=== PATIENT | female | born 1990 | race Hispanic/Latino ===

== ENCOUNTER → 2018-04-22 08:45 | Outpatient (CLI) | payer OTHER, SELFPAY ==
--- NOTE | 2018-04-22 08:47 | DI.MRI.S_ITS ---
PROCEDURE: MR HEAD/BRAIN WO/W CON INDICATIONS: Slurred speech, visual problems. Clinical concern for multiple sclerosis. TECHNIQUE: Noncontrast sagittal and axial FLAIR, axial and coronal T2 fast spin echo, axial VIBE, axial gradient echo, axial diffusion and ADC through the brain. After the administration of contrast, axial and coronal VIBE with fat saturation through the brain. COMPARISON: [facility], MR, C-SPINE WITHOUT CONTRAST, 01/14/2018, 12:47. FINDINGS: Image quality: Excellent. CSF spaces: Ventricles are normal in size and shape. Basal cisterns are patent. No extra-axial fluid collections. Brain: No intracranial bleeds or mass effects. Deluna-white matter interface appears intact. No suspicious white matter lesions. No abnormal intracranial enhancement. Diffusion weighted images show no acute ischemic insults. Brainstem appears normal. Normal intravascular flow voids are present. Skull and face: Calvarial marrow signal is normal. Orbits appear normal. Sinuses: Sinuses and mastoids are clear. IMPRESSION: 1. No evidence of multiple sclerosis. 2. No acute process. No recent infarct. Dictated by: Cecil Carpio M.D. on 04/22/2018 at 10:32 Approved by: Cecil Carpio M.D. on 04/22/2018 at 10:34
== END ==
PROVIDERS: PCP Family Medicine; Visit Provider Family Medicine
DX: R47.81 Slurred speech (principal); H53.9 Unspecified visual disturbance
CPT/HCPCS: 70553; A9579

== ENCOUNTER → 2018-04-28 12:38 | Outpatient (CLI) | payer OTHER, SELFPAY ==
[2018-04-28 14:08] LABS: HCG Quantitative /Beta subunit < 2.39 mIU/mL
== END ==
PROVIDERS: PCP Family Medicine; Visit Provider Physician Assistant
DX: R11.10 Vomiting, unspecified (principal)
CPT/HCPCS: 36415; 84702

== ENCOUNTER → 2018-07-07 17:55 | Outpatient (CLI) | payer OTHER, SELFPAY ==
[2018-07-07 18:51] LABS: Add Manual Diff / Slide Review NO; Basophils Percent Auto 0.3 % (0-2); Eosinophils Percent Auto 0.7 % (2-4); Hematocrit 37.4 % (36-46); Hemoglobin 12.7 g/dL (12.0-16.0); Lymphocytes Percent Auto 29.4 % (25-40); Mean Corpuscular HGB Conc 33.9 % (30-36); Mean Corpuscular Volume 91.3 fL (80-100); Monocytes Percent Auto 6.6 % (3-14); Neutrophils Absolute Auto 6800 /uL (3000-5900); Platelet Count 325 X10^3/uL (150-400); Red Cell Distribution Width 12.9 % (11.6-14.8); White Blood Cell Count 10.8 X10^3/uL (4.5-11.0)
[2018-07-07 19:17] LABS: Alanine Aminotransferase 34 IU/L (9-52); Albumin Globulin Ratio 1.1 (1.0-2.8); Alkaline Phosphatase 75 U/L (38-126); Aspartate Aminotransferase 29 IU/L (14-36); BUN Creatinine Ratio 15.6 (6-22); Bilirubin Total 0.5 mg/dL (0.2-1.3); Blood Urea Nitrogen 14 mg/dL (7-17); C-Reactive Protein Quant 2.1 mg/dL (<1.0); Calcium 9.1 mg/dL (8.4-10.2); Carbon Dioxide 29 mmol/L (22-32); Chloride 104 mmol/L (98-107); Creatine Kinase 288 U/L (30-135); Estimated Glomerular Filt Rate > 60.0 mL/min (>60); Globulin 3.6 g/dL (1.7-4.1); Glucose 80 mg/dL (70-100); HEMOLYSIS < 15 (0-50); Potassium 3.9 mmol/L (3.4-5.1); Sodium 143 mmol/L (137-145); Total Protein 7.6 g/dL (6.3-8.2)
[2018-07-07 19:18] LABS: Rheumatoid Factor < 8.6 IU/mL (<12.0)
[2018-07-07 19:26] LABS: Erythrocyte Sedimentation Rate 34 MM/HR (0-20)
[2018-07-07 19:45] LABS: Thyroid Stimulating Hormone 4.01 uIU/mL (0.47-4.68)
[2018-07-11 20:29] LABS: ANA Pattern Nucleolar; ANA Screen, IFA Positive (Negative)
== END ==
PROVIDERS: PCP Family Medicine; Visit Provider Physical Medicine & Rehabilitation
DX: M25.511 Pain in right shoulder (principal); M54.12 Radiculopathy, cervical region; R53.83 Other fatigue
CPT/HCPCS: 36415; 80053; 82550; 84443; 85025; 85651; 86038; 86140; 86430

== ENCOUNTER → 2018-07-31 06:32 | Outpatient (CLI) | payer OTHER, SELFPAY ==
--- NOTE | 2018-07-31 | DI.MRI.S_ITS ---
PROCEDURE: MR SHOULDER RT WO CON INDICATIONS: RIGHT SHOULDER PAIN TECHNIQUE: Noncontrast oblique coronal T2 fast spin echo with fat saturation, oblique sagittal T1 spin echo and T2 fast spin echo with fat saturation, axial T1 spin echo and T2 fast spin echo with fat saturation through the shoulder. COMPARISON: None. FINDINGS: Image quality: Excellent. Rotator cuff: The supraspinatus, infraspinatus, and subscapularis tendons appear intact throughout but there is inferior tilt of the lateral acromion narrowing the interspace through which the supraspinatus normally crosses. There is a small degree of edema within the lateral supraspinatus tendon but a partial or full thickness tear is not found. Sagittal images demonstrate no muscle atrophy. Bones and bursae: No bone marrow contusions or fractures. No acromioclavicular joint degeneration. The acromion demonstrates conventional anatomy, without an os acromiale. No pathologic subacromial-subdeltoid or subcoracoid bursal fluid is present. Capsule and soft tissues: In the absence of intra-articular contrast, the labrum and glenohumeral ligaments appear intact. The long head of the biceps tendon demonstrates normal location and morphology. The rotator interval appears normal, without fibrosis. The coracohumeral ligament is normal in thickness. IMPRESSION: Mild chronic impingement syndrome likely is present given the inferior tilt of the lateral acromion narrowing the interspace through which the supraspinatus tendon courses, with no evidence of partial or full thickness rotator cuff tear. There is mild tendinosis involving the supraspinatus tendon laterally as a result. Dictated by: Richard Joe M.D. on 07/31/2018 at 13:56 Approved by: Richard Joe M.D. on 07/31/2018 at 13:58
== END ==
PROVIDERS: PCP Family Medicine; Visit Provider Psychiatry & Neurology Neurology
DX: M25.511 Pain in right shoulder (principal); M75.41 Impingement syndrome of right shoulder
CPT/HCPCS: 73221

== ENCOUNTER 2018-12-01 00:05 | Emergency (ER) | payer OTHER, SELFPAY ==
[2018-12-01 00:27] VITALS: BP 123/70; PULSE 111; RESP 18; TEMP 37.1; O2SAT 100; BMI 43.4
--- NOTE | 2018-12-01 01:18 | ED.SKABFB ---
HPI - Skin/Abscess/Foreign Bdy General Chief complaint: Skin/Abscess/Foreign Body Stated complaint: Small pea size ball inside belly button, painful Time Seen by Provider: 12/01/18 00:47 Source: patient Mode of arrival: ambulatory Limitations: no limitations History of Present Illness HPI narrative: patient is a 28-year-old female who presents with umbilical pain. She feels like something is inside her umbilicus. She has a noticed some discomfort ongoing for last 2 weeks but now has an obvious area of swelling. No fever chills or redness. She has had some pain at her old piercing site ongoing for a year where she feels like the skin is sensitive. She knows unable to sleep due to pain. Related Data Home Medications Medication Instructions Recorded Confirmed kmradrj-bcyfuboniveem-hlmexqun 1 tab PO PRN #0 10/27/17 [Excedrin Migraine] Previous Rx's Medication Instructions Recorded clindamycin 1 % lotion 1 applictn TOP BID #60 ml 06/17/18 lidocaine 5 % topical ointment 1 applictn TOP BID #50 gram 06/17/18 etonogestrel-ethinyl estradiol 1 vaginalrin VAGINAL QMONTH #3 each 09/07/18 0.12 mg -0.015 mg/24 hr vaginal ring ciprofloxacin 500 mg tablet 500 mg PO BID #6 tab 10/12/18 epinephrine 0.3 mg/0.3 mL 0.3 mg IM ONCE #1 each 10/12/18 injection, auto-injector Allergies Allergy/AdvReac Type Severity Reaction Status Date / Time No Known Allergies Allergy Uncoded 06/17/18 08:50 Review of Systems Review of Systems GENERAL: Denies chills,fever HEENT: Denies throat pain RESPIRATORY: Denies dyspnea, cough, wheezing CARDIOVASCULAR: Denies chest pain, palpitations GASTROINTESTINAL: Denies nausea, vomiting MUSCULOSKELETAL: Denies extremity pain, injury SKIN: See HPI NEUROLOGIC: Denies weakness, dizziness, headache, numbness 8 point review of systems is negative except for those stated above and HPI PFSH Social History marital status: details: is in the [employer] household members: spouse education level: college 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) Smoking Status: Never smoker alcohol intake: never substance use type: does not use Exam Initial Vital Signs Initial Vital Signs: Vital Signs Temperature 98.7 F 12/01/18 00:27 Pulse Rate 111 H 12/01/18 00:27 Respiratory Rate 18 12/01/18 00:27 Blood Pressure 123/70 12/01/18 00:27 Pulse Oximetry 100 12/01/18 00:27 GENERAL: Well-appearing, well-nourished and in no acute distress. CARDIOVASCULAR: peripheral pulses in tact, cap refill <2 sec RESPIRATORY: No respiratory distress, speaks in full sentences without difficulty [ABDOMEN: Soft, nontender, no guarding or rebound] EXTREMITIES: Normal range of motion, no clubbing or edema. Neurovascularly intact NEUROLOGICAL: Cranial nerves II through XII grossly intact. Normal gait and speech. SKIN: umbilicus at 11:00 a.m. position there is some mild swelling 0.25cm x 0.5 cm no erythema no induration extremely tender to touch. site of old piercing is noted no abscess no induration around there there is some scar tissue felt just subcutaneously. Procedures Abscess I/D Site: abdomen (Umbilical) Local Anesthetic: lidocaine 1% Amount of anesthesia used (mL): 8 Technique: needle aspiration (18 gauge) and incised with #11 blade Amount of fluid expressed (mL): 0.25 Irrigation: No Packing used?: none Course Vital Signs - 8 hr 12/01/18 00:27 12/01/18 01:36 Temperature 98.7 F Pulse Rate 111 H 98 H Respiratory Rate 18 16 Blood Pressure 123/70 120/70 Pulse Oximetry 100 98 MDM - Skin/Abscess/Foreign Bdy MDM Narrative Medical decision making narrative: Patient had a small amount of gross dark pus. She has no induration or significant erythema. The time of based on patient's size of abscess and signs no indication for oral antibiotics at this time. Recommended topical antibiotic ointment and warm compresses. Discharge Plan Departure Patient Disposition: Home Clinical Impression: Abscess of skin or subcutaneous tissue Discharge Date/Time: 12/01/18 01:37 Interventions: ED Discharge Assessment Last Done: 12/01/18 01:36 Instructions: DI for Incision and Drainage of a Skin Abscess, DI for Skin Abscess Activity Restrictions/Additional Instructions: *You have been diagnosed with skin abscess *What to do: keep area clean and dry, use warm compresses, may apply Neosporin or antibacterial ointment to it twice daily *Continue to take medications as directed *Follow up with your primary care provider in 2-3 days *Return to ER if you should have increased redness, pus, any new, worsening or concerning symptoms Prescriptions: No Action glcyspr-[id number]-ygqfgesx [Excedrin Migraine] 1 EACH tablet 1 tab PO PRN Qty: 0 RF: 0 etonogestrel-ethinyl estradiol [NuvaRing] 0.12-0.015 mg/24 hr ring 1 vaginalrin Vaginal QMONTH Qty: 3 RF: 3 clindamycin phosphate 1 % lotion 1 applictn TOP BID Qty: 60 RF: 0 lidocaine 5 % ointment 1 applictn TOP BID Qty: 50 RF: 0 ciprofloxacin HCl [Cipro] 500 mg tablet 500 mg PO BID Qty: 6 RF: 0 epinephrine [EpiPen] 0.3 mg/0.3 mL auto-injector 0.3 mg IM ONCE Qty: 1 RF: 0 Referrals: Ericka Vazquez DO [Primary Care Provider] -
--- NOTE | 2018-12-01 01:22 | ED_ITS ---
HPI - Skin/Abscess/Foreign Bdy General Chief complaint: Skin/Abscess/Foreign Body Stated complaint: Small pea size ball inside belly button, painful Time Seen by Provider: 12/01/18 00:47 Source: patient Mode of arrival: ambulatory Limitations: no limitations History of Present Illness HPI narrative: patient is a 28-year-old female who presents with umbilical pain. She feels like something is inside her umbilicus. She has a noticed some discomfort ongoing for last 2 weeks but now has an obvious area of swelling. No fever chills or redness. She has had some pain at her old piercing site ongoing for a year where she feels like the skin is sensitive. She knows unable to sleep due to pain. Related Data Home Medications Medication Instructions Recorded Confirmed reqbgyh-xachhdhrrtxwm-rolopffj 1 tab PO PRN #0 10/27/17 [Excedrin Migraine] Previous Rx's Medication Instructions Recorded clindamycin 1 % lotion 1 applictn TOP BID #60 ml 06/17/18 lidocaine 5 % topical ointment 1 applictn TOP BID #50 gram 06/17/18 etonogestrel-ethinyl estradiol 1 vaginalrin VAGINAL QMONTH #3 each 09/07/18 0.12 mg -0.015 mg/24 hr vaginal ring ciprofloxacin 500 mg tablet 500 mg PO BID #6 tab 10/12/18 epinephrine 0.3 mg/0.3 mL 0.3 mg IM ONCE #1 each 10/12/18 injection, auto-injector Allergies Allergy/AdvReac Type Severity Reaction Status Date / Time No Known Allergies Allergy Uncoded 06/17/18 08:50 Review of Systems Review of Systems GENERAL: Denies chills,fever HEENT: Denies throat pain RESPIRATORY: Denies dyspnea, cough, wheezing CARDIOVASCULAR: Denies chest pain, palpitations GASTROINTESTINAL: Denies nausea, vomiting MUSCULOSKELETAL: Denies extremity pain, injury SKIN: See HPI NEUROLOGIC: Denies weakness, dizziness, headache, numbness 8 point review of systems is negative except for those stated above and HPI PFSH Social History marital status: details: is in the [employer] household members: spouse education level: college 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 CARDIOVASCULAR: peripheral pulses in tact, cap refill <2 sec RESPIRATORY: No respiratory distress, speaks in full sentences without difficulty [ABDOMEN: Soft, nontender, no guarding or rebound] EXTREMITIES: Normal range of motion, no clubbing or edema. Neurovascularly intact NEUROLOGICAL: Cranial nerves II through XII grossly intact. Normal gait and speech. SKIN: umbilicus at 11:00 a.m. position there is some mild swelling 0.25cm x 0.5 cm no erythema no induration extremely tender to touch. site of old piercing is noted no abscess no induration around there there is some scar tissue felt just subcutaneously. Procedures Abscess I/D Site: abdomen (Umbilical) Local Anesthetic: lidocaine 1% Amount of anesthesia used (mL): 8 Technique: needle aspiration (18 gauge) and incised with #11 blade Amount of fluid expressed (mL): 0.25 Irrigation: No Packing used?: none Course Vital Signs - 8 hr 12/01/18 00:27 12/01/18 01:36 Temperature 98.7 F Pulse Rate 111 H 98 H Respiratory Rate 18 16 Blood Pressure 123/70 120/70 Pulse Oximetry 100 98 MDM - Skin/Abscess/Foreign Bdy MDM Narrative Medical decision making narrative: Patient had a small amount of gross dark pus. She has no induration or significant erythema. The time of based on patient's size of abscess and signs no indication for oral antibiotics at this time. Recommended topical antibiotic ointment and warm compresses. Discharge Plan Departure Patient Disposition: Home Clinical Impression: Abscess of skin or subcutaneous tissue Discharge Date/Time: 12/01/18 01:37 Interventions: ED Discharge Assessment Last Done: 12/01/18 01:36 Instructions: DI for Incision and Drainage of a Skin Abscess, DI for Skin Abscess Activity Restrictions/Additional Instructions: *You have been diagnosed with skin abscess *What to do: keep area clean and dry, use warm compresses, may apply Neosporin or antibacterial ointment to it twice daily *Continue to take medications as directed *Follow up with your primary care provider in 2-3 days *Return to ER if you should have increased redness, pus, any new, worsening or concerning symptoms Prescriptions: No Action fcogfgy-kfivlovuokkdu-jbtahwkc [Excedrin Migraine] 1 EACH tablet 1 tab PO PRN Qty: 0 RF: 0 etonogestrel-ethinyl estradiol [NuvaRing] 0.12-0.015 mg/24 hr ring 1 vaginalrin Vaginal QMONTH Qty: 3 RF: 3 clindamycin phosphate 1 % lotion 1 applictn TOP BID Qty: 60 RF: 0 lidocaine 5 % ointment 1 applictn TOP BID Qty: 50 RF: 0 ciprofloxacin HCl [Cipro] 500 mg tablet 500 mg PO BID Qty: 6 RF: 0 epinephrine [EpiPen] 0.3 mg/0.3 mL auto-injector 0.3 mg IM ONCE Qty: 1 RF: 0 Referrals: Ericka Vazquez DO [Primary Care Provider] -
[2018-12-01 01:36] VITALS: BP 120/70; PULSE 98; RESP 16; O2SAT 98
== END 2018-12-01 01:37 | disposition home or self-care (01) ==
PROVIDERS: Emergency Provider Emergency Medicine; PCP Family Medicine
DX: L02.216 Cutaneous abscess of umbilicus (principal)
CPT/HCPCS: 10060; 99282

== ENCOUNTER → 2019-01-25 08:17 | Outpatient (CLI) | payer OTHER, SELFPAY ==
--- NOTE | 2019-01-25 08:18 | DI.US.S_ITS ---
PROCEDURE: US ABDOMEN LIMITED INDICATIONS: CONCERN FOR UMBILICAL ABSCESS; LUMP, DRAINAGE TECHNIQUE: Real-time focused scanning was performed of the abdomen, with image documentation. COMPARISON: None. FINDINGS: There is a 2.9 x 1.5 x 1.2 cm complex mass in the anterior abdominal wall soft tissues superior to the umbilicus which corresponds to palpable lesion. There is internal vascularity associated with the lesion. IMPRESSION: 1.2 x 1.5 x 1.2 cm complex mass corresponds to clinically palpable mass. Lesion has internal vascularity may represent inflammatory phlegmon or neoplastic process. Dictated by: Eugenie Mascorro MD, PhD on 01/25/2019 at 8:37 Approved by: Eugenie Mascorro MD, PhD on 01/25/2019 at 8:38
== END ==
PROVIDERS: PCP Family Medicine; Visit Provider Family Medicine
DX: L02.216 Cutaneous abscess of umbilicus (principal)
CPT/HCPCS: 76705

== ENCOUNTER → 2019-02-19 13:50 | Outpatient (CLI) | payer OTHER, SELFPAY ==
--- NOTE | 2019-02-19 14:10 | DI.CT.S_ITS ---
PROCEDURE: CT ABDOMEN PELVIS W CON INDICATIONS: Pain at the umbilicus. umbilical lesion. TECHNIQUE: After the administration of oral and intravenous contrast, 5 mm thick sections acquired from the diaphragms to the symphysis. 5 mm thick coronal and sagittal reformats were performed. For radiation dose reduction, the following was used: automated exposure control, adjustment of mA and/or kV according to patient size. COMPARISON: None. FINDINGS: Image quality: Excellent. ABDOMEN: Lung bases: Lung bases are clear. Heart size is normal. Solid organs: Liver is normal in size and enhancement. Gallbladder is unremarkable. Biliary system is non-dilated. Pancreas enhances normally. Spleen is normal in size and enhancement. No adrenal nodules. Kidneys are normal in size and enhancement, without hydronephrosis. Peritoneum and bowel: Stomach, small bowel, and colon loops are normal in caliber and wall thickness. No free fluid or air. Sigmoid diverticulosis without evidence of diverticulitis. Nodes and vessels: No retroperitoneal or mesenteric adenopathy. Aorta and inferior vena cava are normal in caliber. Miscellaneous: There is a periumbilical hernia containing fat. PELVIS: Genitourinary: Bladder wall thickness is normal. Miscellaneous: No inguinal hernias or adenopathy. Bones: No suspicious bony lesions. No vertebral body compression fractures. IMPRESSION: 1. Periumbilical hernia containing fat. 2. Sigmoid diverticulosis. Dictated by: Jesse Tobin M.D. on 02/19/2019 at 15:24 Approved by: Jesse Tobin M.D. on 02/19/2019 at 15:28
== END ==
PROVIDERS: PCP Family Medicine; Visit Provider Specialist
DX: R10.33 Periumbilical pain (principal); R93.5 Abnormal findings on diagnostic imaging of other abdominal regions, including retroperitoneum; N92.6 Irregular menstruation, unspecified; K42.9 Umbilical hernia without obstruction or gangrene; K57.30 Diverticulosis of large intestine without perforation or abscess without bleeding
CPT/HCPCS: 74177; Q9967

== ENCOUNTER → 2019-04-06 19:18 | Outpatient (CLI) | payer OTHER, SELFPAY ==
--- NOTE | 2019-04-06 19:22 | DI.RAD.S_ITS ---
PROCEDURE: XR RIBS RT MIN 3V W CXR 1V INDICATIONS: Fall on right side TECHNIQUE: 2 views of the right ribs were acquired, along with a single view chest. COMPARISON: None. FINDINGS: Surgical changes and devices: None. Bones and chest wall: No fractures or dislocations. No suspicious bony lesions. Overlying soft tissues appear unremarkable. Lungs and pleura: No pleural effusions or pneumothorax. Lungs appear clear. Mediastinum: Mediastinal contours appear normal. Heart size is normal. IMPRESSION: No acute cardiopulmonary process. No acute, displaced rib fractures identified. Dictated by: Shubham Quintana M.D. on 04/06/2019 at 20:21 Approved by: Shubham Quintana M.D. on 04/06/2019 at 20:22
--- NOTE | 2019-04-06 19:22 | DI.RAD.S_ITS ---
PROCEDURE: XR HAND RT MIN 3V INDICATIONS: Fall on right side TECHNIQUE: 6 views of the hand(s) acquired. COMPARISON: None. FINDINGS: Bones: No fractures or dislocations. Carpal bones are normally aligned. No suspicious bony lesions. Soft tissues: No suspicious soft tissue calcifications. IMPRESSION: Right hand without acute osseous abnormalities. Dictated by: Shubham Quintana M.D. on 04/06/2019 at 20:22 Approved by: Shubham Quintana M.D. on 04/06/2019 at 20:23
== END ==
PROVIDERS: PCP Family Medicine; Visit Provider Physician Assistant
DX: M79.641 Pain in right hand (principal); R07.81 Pleurodynia
CPT/HCPCS: 71101; 73130

== ENCOUNTER → 2019-04-27 07:26 | Outpatient (CLI) | payer OTHER, SELFPAY ==
--- NOTE | 2019-04-27 07:33 | DI.US.S_ITS ---
PROCEDURE: US ABDOMEN COMPLETE INDICATIONS: NAUSEA TECHNIQUE: Real-time scanning was performed of the abdominal and retroperitoneal organs, with image documentation. COMPARISON: [facility], CT, CT ABDOMEN PELVIS W CON, 02/19/2019, 14:40. FINDINGS: Liver: Liver is normal in size and homogeneous in echotexture. Gallbladder: No gallstones identified. Normal gallbladder wall. No pericholecystic fluid. Negative sonographic Hampton sign. Biliary ducts: Intrahepatic bile ducts are non-dilated. Extrahepatic bile duct caliber measures 4.3 mm. Normal is 6-7 mm or less in diameter, or 10 mm or less post-cholecystectomy. Pancreas: Visualized portions of the pancreas are sonographically normal. Spleen: Spleen is normal in size and homogeneous in echotexture. Kidneys: Kidneys are normal in size and echotexture. Right kidney measures 11.8 cm long; left kidney measures 11.4 cm long. No hydronephrosis or nephrolithiasis. No solid masses. Aorta: Visualized aorta is normal in caliber at less than 3 cm. Iliacs: Proximal common iliac arteries are normal in caliber at less than 2.5 cm. IVC: Intrahepatic inferior vena cava is patent. Miscellaneous: No free abdominal fluid. IMPRESSION: No source for nausea and vomiting identified. Dictated by: Wilmer WELCH Interpreted: Ramu Newby MD on 04/27/2019 at 9:21 Approved by: Ramu Newby M.D. on 04/28/2019 at 9:47
[2019-04-27 12:12] LABS: HCG Quantitative /Beta subunit < 2.39 mIU/mL
== END ==
PROVIDERS: PCP Family Medicine; Visit Provider Specialist
DX: R93.2 Abnormal findings on diagnostic imaging of liver and biliary tract (principal); R11.2 Nausea with vomiting, unspecified
CPT/HCPCS: 36415; 76700; 84702

== ENCOUNTER 2019-07-05 06:26 | Day surgery (SDC) | payer OTHER, SELFPAY ==
[2019-07-02 15:26] VITALS: BMI 40.0
[2019-07-05] VITALS (16 sets, daily range): BP systolic 103–136; BP diastolic 64–95; PULSE 72–116; RESP 8–16; TEMP 36.3–36.9; O2SAT 92–100; BMI 40.3
--- NOTE | 2019-07-05 | PATH_ITS ---
[facility] Accession Number: [id number] . 01 Material submitted: . umbilicus - CAVITY UNDER UMBILICUS . 01 Clinical history: . RULE OUT ENDOMETRIOSIS . 02 Diagnosis: Tissue From Area of Umbilicus: Dense fibrous tissue containing scattered blood vessels and rare peripheral nerve fiber. No evidence of endometriosis or neoplasm. MRV/07/07/2019 . 02 Electronically signed: . Luke Ribeiro MD, Pathologist NPI- [id number] . 01 Gross description: . CAVITY UNDER UMBILICUS: Received in formalin are 3 fragments of hodges soft tissue measuring 0.7 x 0.5 x 0.4 cm in aggregate. Tissue is inked,. Specimen is submitted in its entirety in 1 cassette. /DMC /DMC . 02 Pathologist provided ICD-10: L90.5 . 02 CPT . 869486 Performed at: 01 [facility] [address] [facility], [place], [place] [id number] MD Adrien Degroot MD Phone: [phone] Performed at: [address] [facility] [address] [place], [place] [id number] MD Vielka Velazco MD Phone: [phone]
--- NOTE | 2019-07-05 08:02 | PM.PREOP ---
Pre-operative Note Interval Note History & Physical reviewed/Exam performed by Physician: Yes Changes to H&P: No H&P completed within 30 days and has changed as indicated here:: See note for H&P
[2019-07-05] MEDS: LACTATED RINGERS 1,000 ML 42 ML IV (08:09)
[2019-07-05] MEDS: CEFAZOLIN 2 GM/100 ML FROZ.PIGGY IV (08:25)
--- NOTE | 2019-07-05 08:50 | SUR.OPER ---
Supine on padded OR bed, head on pillow, arms secured on padded arm boards at <90 degrees abduction, legs uncrossed, safety belt at thigh, tape over blanket over lower legs.
[2019-07-05] MEDS: ACETAMINOPHEN IV 1,000 MG/100 ML VIAL 400 MG IV (09:18)
[2019-07-05] MEDS: BUPIVACAINE 0.5% (PF) VIAL 30 ML INJ (09:21)
[2019-07-05] MEDS: ALBUTEROL 2.5 MG/3 ML NEB (ADULT) INH (10:27)
--- NOTE | 2019-07-05 10:32 | PM.OP.1 ---
Operative Date/Time/Diagnoses Date of procedure: 07/05/19 Time of procedure: 10:08 Pre-op diagnosis: Umbilical hernia. Post-op diagnosis: same (Small cystic structure encountered densely adherent to the overlying skin. Consider endometrioma) Procedure & Clinicians Procedure: Repair umbilical hernia with underlay of mesh Same procedure as scheduled: Yes Indications: Symptomatic hernia Surgeon: Mahad Roldan Click Yes if Unassisted: Yes Anesthesia Type: General Operative Notes Findings: Small defect with a cystic structure under the umbilicus filled with thick viscous Deluna/ brownish fluid Closure Type: primary Specimen(s): other (Portion of cyst wall) Prosthetic devices, grafts, tissues, transplants, or devices: Circular Atrium mesh 1.7 inches in diameter Estimated Blood Loss (mL): 10 Blood products transfused: none Procedure in detail: Patient was placed supine on the operating room table and underwent general LMA anesthesia. She was prepped and draped in the usual fashion. The scar from her belly button ring was completely closed. I attempted to flush alcohol and chlorhexidine through it but this proved impossible due to complete closure. Local anesthetic was infiltrated in a field block fashion around the umbilicus. A curvilinear incision was made in the infraumbilical fold. It was carried down to the level the fascia. The hernia sac was identified and entered. The hernia contained omentum which easily reduced. I exposed the fascia circumferentially and reduced a portion of the preperitoneal fat adherent to the anterior abdominal wall. This was allow me to place mesh. I noted a small defect above the main 1. I could not tell if it was completely through fascia or not but I chose to close with a single stitch of interrupted [id number] 0 Ethibond. It was a small defect. In dissecting into the hernia sac I also encountered a separate fluid-filled cystic structure which I entered and drained. The fluid was viscous is somewhat deluna and brown in color. I removed the cyst wall which was densely adherent to the overlying skin and required making a small opening in the skin itself. This I closed with an interrupted 4 0 Vicryl suture. I cultured the fluid in case this was a low-grade infection but I doubt it based on the fact she has not had any inflammation for months. With this sac removed and a portion sent as specimen I close the fascia with interrupted [id number] and simple 0 Ethibond sutures. I placed a 1.7 in round circular Atrium mesh beneath the fascia and tacked the tails into my fascial closure. The subcu was closed with interrupted 3 0 Vicryl. The umbilicus was tacked down to the fascia also with a 3 0 Vicryl. The skin was closed with a running 4 0 Vicryl in interrupted 4 0 Vicryl sutures. Steri-Strips and Mastisol were applied. A dressing was applied the patient was extubated taken recovery area in good condition. Complications: none Condition: stable Disposition: PACU
[2019-07-05] MEDS: fentaNYL 100 MCG/2 ML INJ 50 MCG IV (10:53)
--- NOTE | 2019-07-05 10:55 | SUR.PHASEI ---
1019 late entry Arousing spontaneously, needed repeated requests to open mouth, oral airway dc'd. Dr. Espinoza talking to the patient. Resp unlabored 1025 late entry Complains that she feels like she can't breath. Eyes closed, pointing to upper chest and throat. No accessory effort to breath, lungs clear, sat 96%. Nebulizer ordered by Dr. Espinoza (came to pacu and say the patient). 1030 States that she feels like she needs to cough up phlegm. Pillow and instructions for abdominal support given.
--- NOTE | 2019-07-05 10:58 | SUR.PHASEI ---
1053 No longer complaining of headache, Rx given for abdominal pain. Kelly.
--- NOTE | 2019-07-05 11:06 | SUR.PHASEI ---
Sleeping, resp even and regular, NSR
--- NOTE | 2019-07-05 11:56 | SUR.PHASEI ---
pt has been sleeping, attempting to arouse her to transfer to [facility]. Complains of itching in her nose/mouth/facial region, no swelling or rash noted (was rubbing, scratching face when she came out of OR) States that she takes benadryl at home, called Dr. camejo for verbal order: given.
--- NOTE | 2019-07-05 12:06 | SUR.PHASEI ---
1203 stable, tolerating PO well, transported to floor by department staff. Stable, talking, pleasant.
--- NOTE | 2019-07-05 12:28 | SUR.PHASEI ---
1205 Patient returned to sleep, very drowsy, VSS. Benadryl was held, no further complaints of itching prior to transfer to [facility].
[2019-07-05] MEDS: diphenhydrAMINE 25 MG TABLET PO (12:29)
--- NOTE | 2019-07-05 12:29 | SUR.PHASEI ---
1212 To [facility], spouse to bedside, dressing reported to them as CDI, arouses to voice, skin warm and dry, resp unlabored. Report given. Pt. stable.
[2019-07-05] MEDS: ONDANSETRON 4 MG/2 ML INJ IV (12:36)
--- NOTE | 2019-07-05 12:38 | SUR.PHASEII ---
Pt c/o itching, medicated with benadryl. C/o nausea, medicated with zofran. Abd deepak cdi. Report to Sandy.
[2019-07-05] MEDS: SCOPOLAMINE 1 PATCH TOP ×2 (13:11→13:15)
[2019-07-05] MEDS: OXYCODONE IR 5 MG TABLET PO (13:32)
[2019-07-05] MEDS: LACTATED RINGERS 1,000 ML 100 ML IV (15:12)
== END 2019-07-05 15:00 | disposition home or self-care (01) ==
PROVIDERS: PCP Family Medicine; Visit Provider Specialist
PROC: (CPT 49585; principal; 2019-07-05 07:45)
DX: K42.9 Umbilical hernia without obstruction or gangrene (principal); L90.5 Scar conditions and fibrosis of skin; E66.9 Obesity, unspecified; Z68.41 Body mass index [BMI] 40.0-44.9, adult
CPT/HCPCS: 49585; 87070; 87075; 87205; 88305; C1781; J0131; J0690; J1100; J1170; J1885; J2250; J2405; J2704; J3010; J7613

== ENCOUNTER → 2019-08-19 11:29 | Outpatient (CLI) | payer OTHER, SELFPAY ==
--- NOTE | 2019-08-19 12:06 | DI.CT.S_ITS ---
PROCEDURE: CT ABDOMEN PELVIS W CON INDICATIONS: New onset sharp pain in the area of the umbilicus/suprapubic TECHNIQUE: After the administration of oral and intravenous contrast, 5 mm thick sections acquired from the diaphragms to the symphysis. 5 mm thick coronal and sagittal reformats were performed. For radiation dose reduction, the following was used: automated exposure control, adjustment of mA and/or kV according to patient size. COMPARISON: [facility], CT, CT ABDOMEN PELVIS W CON, 02/19/2019, 14:40. FINDINGS: Image quality: Excellent. ABDOMEN: Lung bases: Lung bases are clear. Heart size is normal. Solid organs: Liver is normal in size and enhancement. Gallbladder is unremarkable. Biliary system is non-dilated. Pancreas enhances normally. Spleen is normal in size and enhancement. No adrenal nodules. Kidneys are normal in size and enhancement, without hydronephrosis. Peritoneum and bowel: Stomach, small bowel, and colon loops are normal in caliber and wall thickness. No free fluid or air. Nodes and vessels: No retroperitoneal or mesenteric adenopathy. Aorta and inferior vena cava are normal in caliber. Miscellaneous: There is soft tissue thickening and minimal adjacent fat stranding at the umbilicus, (5/50), new compared to CT 02/19/2019. There is nodular soft tissue thickening at the superior aspect. No discrete fluid collection. PELVIS: Genitourinary: Bladder is within normal limits. The uterus and ovaries are normal in appearance. Miscellaneous: No inguinal hernias or adenopathy. Bones: No suspicious bony lesions. No vertebral body compression fractures. IMPRESSION: 1. New soft tissue thickening and adjacent minimal fat stranding in the umbilicus compared to CT 02/19/2019. No discrete fluid collection. If clinically indicated this could be further evaluated with targeted ultrasound. 2. No abnormality in the suprapubic region demonstrated. 3. No acute inflammatory process in the abdomen. No free fluid. Dictated by: Cesar Adams M.D. on 08/19/2019 at 13:22 Approved by: Cesar Adams M.D. on 08/19/2019 at 13:28
== END ==
PROVIDERS: Family Provider Family Medicine; PCP Family Medicine; Visit Provider Specialist
DX: R10.2 Pelvic and perineal pain (principal)
CPT/HCPCS: 74177; Q9967

== ENCOUNTER → 2019-10-14 14:09 | Outpatient (CLI) | payer OTHER, SELFPAY ==
[2019-10-14 14:33] LABS: Add Manual Diff / Slide Review NO; Basophils Absolute Auto 0 /uL (0-100); Basophils Percent Auto 0.5 % (0-2); Eosinophils Absolute Auto 100 /uL (0-450); Eosinophils Percent Auto 0.6 % (2-4); Hematocrit 39.7 % (36-46); Hemoglobin 13.4 g/dL (12.0-16.0); Lymphocytes Absolute Auto 2200 /uL (1100-4500); Lymphocytes Percent Auto 22.6 % (25-40); Mean Corpuscular HGB Conc 33.8 % (30-36); Mean Corpuscular Hemoglobin 30.7 PG (26-34); Mean Corpuscular Volume 90.8 fL (80-100); Monocytes Absolute Auto 400 /uL (0-900); Monocytes Percent Auto 3.8 % (3-14); Neutrophils Absolute Auto 7100 /uL (1500-7000); Neutrophils Percent Auto 72.5 % (50-75); Platelet Count 324 X10^3/uL (150-400); Red Blood Cell Count 4.37 X10^6/uL (4.0-5.2); Red Cell Distribution Width 12.4 % (11.6-14.8); White Blood Cell Count 9.8 X10^3/uL (4.5-11.0)
== END ==
PROVIDERS: Family Provider Family Medicine; PCP Family Medicine; Visit Provider Specialist
DX: R10.33 Periumbilical pain (principal)
CPT/HCPCS: 36415; 85025; 99212

== ENCOUNTER → 2019-11-02 15:13 | Outpatient (CLI) | payer OTHER, SELFPAY | PROVIDERS: Family Provider Family Medicine; PCP Family Medicine; Visit Provider Physician Assistant | DX: J02.9 Acute pharyngitis, unspecified (principal) | CPT/HCPCS: 87070 ==